=== PATIENT | male | born 1985 | race Caucasian/White ===

== ENCOUNTER 2017-04-28 22:22 | Emergency (ER) | payer MEDICAID ==
[~2017-04-28] VITALS: Ht 167.6 cm; Wt 93.0 kg
[2017-04-28 22:23] VITALS: BP 116/91
--- NOTE | 2017-04-28 22:23 | NUR ---
Dr. Lepe evaluating patient at bedside.
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
--- NOTE | 2017-04-28 22:23 | NUR ---
PT PLACED IN BED 7 BY EMS.
[2017-04-28] MEDS ORDERED: KETOROLAC 30 MG/ML VIAL IM ONE (22:25)
[2017-04-28] MEDS ORDERED: LIDOCAINE 1% ***ER ONLY *** 10 MG/ML VIAL INJ ONE (22:25)
[2017-04-28] MEDS ORDERED: NEOMYCIN/POLYMYXIN/BACITRACIN 0.9 GM/1 PKT TP ONE (22:25)
--- NOTE | 2017-04-29 00:12 | NUR ---
Patient discharged with v/s stable. Written and verbal after care instructions given and explained. Patient alert, oriented and verbalized understanding of instructions. Ambulatory with steady gait. All questions addressed prior to discharge. ID band removed. Patient advised to follow up with PMD. Rx of KEFLEX 500MG AND NAPROSYN 500MG given. Patient educated on indication of medication including possible reaction and side effects. Opportunity to ask questions provided and answered.
[2017-04-29 00:13] VITALS: BP 125/74
== END 2017-04-29 00:12 | disposition home or self-care (01) ==
LOC: MED 22:22
DX: S91.012A Laceration without foreign body, left ankle, initial encounter (principal); F17.200 Nicotine dependence, unspecified, uncomplicated; V87.8XXA Person injured in other specified noncollision transport accidents involving motor vehicle (traffic), initial encounter; Y93.55 Activity, bike riding; Y92.89 Other specified places as the place of occurrence of the external cause; Y99.8 Other external cause status
CPT/HCPCS: 12001; 73610; 90471; 90715; 96372; 99284; J1885; J2001

== ENCOUNTER 2017-05-22 17:33 | Emergency (ER) | payer MEDICAID ==
[~2017-05-22] VITALS: Ht 170.2 cm; Wt 94.6 kg
[2017-05-22 17:41] VITALS: BP 136/87
--- NOTE | 2017-05-22 17:52 | NUR ---
Patient to bed 07.
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
--- NOTE | 2017-05-22 17:55 | NUR ---
Patient taken to XRAY via wheelchair per tech.
--- NOTE | 2017-05-22 18:44 | NUR ---
DR. CRUZ EVALUATING PT AT BEDSIDE.
[2017-05-22] MEDS ORDERED: KETOROLAC 60 MG/2 ML VIAL IM ONE (18:50)
[2017-05-22 19:05] VITALS: BP 121/87
--- NOTE | 2017-05-22 19:05 | NUR ---
Patient discharged with v/s stable. Written and verbal after care instructions given and explained. Patient alert, oriented and verbalized understanding of instructions. Ambulatory with steady gait. All questions addressed prior to discharge. ID band removed. Patient advised to follow up with PMD. Rx of NORCO & MOTRIN given. Patient educated on indication of medication including possible reaction and side effects. Opportunity to ask questions provided and answered.
== END 2017-05-22 19:05 | disposition home or self-care (01) ==
LOC: MED 17:33
DX: S93.402A Sprain of unspecified ligament of left ankle, initial encounter (principal); F17.200 Nicotine dependence, unspecified, uncomplicated; X58.XXXA Exposure to other specified factors, initial encounter; Y93.89 Activity, other specified; Y92.89 Other specified places as the place of occurrence of the external cause; Y99.8 Other external cause status
CPT/HCPCS: 73610; 96372; 99284; J1885

== ENCOUNTER 2020-05-21 20:44 | Emergency (ER) | payer MEDICAID ==
[~2020-05-21] VITALS: Ht 167.6 cm; Wt 95.3 kg
[2020-05-21 20:50] VITALS: BP 113/68
--- NOTE | 2020-05-21 20:52 | NUR ---
SEEN AND EXAMINED BY PA WITH ORDERS, CARRIED OUT.
[2020-05-21 20:55] VITALS: BP 113/68
[2020-05-21] MEDS ORDERED: IBUPROFEN 600 MG TAB PO ONE (21:00)
--- NOTE | 2020-05-21 21:06 | NUR ---
Dr. Melo examining patient.
--- NOTE | 2020-05-21 21:13 | NUR ---
Patient discharged with v/s stable. Written and verbal after care instructions given and explained. Patient alert, oriented and verbalized understanding of instructions. Ambulatory with steady gait. All questions addressed prior to discharge. ID band removed. Patient advised to follow up with PMD. Rx of KEFLEX AND ibuprofen given. Patient educated on indication of medication including possible reaction and side effects. Opportunity to ask questions provided and answered.
== END 2020-05-21 21:13 | disposition home or self-care (01) ==
LOC: MED 20:44
DX: L03.012 Cellulitis of left finger (principal)
CPT/HCPCS: 90471; 90715; 99283

== ENCOUNTER 2021-09-23 20:48 | Emergency (ER) | payer MEDICAID ==
[~2021-09-23] VITALS: Ht 170.2 cm; Wt 90.7 kg
[2021-09-23 21:00] VITALS: BP 124/94
== END 2021-09-23 21:25 | disposition left against medical advice (07) ==
LOC: MED 20:48
DX: M79.641 Pain in right hand (principal); Z53.21 Procedure and treatment not carried out due to patient leaving prior to being seen by health care provider

== ENCOUNTER 2021-10-24 19:18 | Emergency (ER) | payer MEDICAID ==
[~2021-10-24] VITALS: Ht 167.6 cm; Wt 86.2 kg
[2021-10-24 19:56] VITALS: BP 100/62
[2021-10-24] MEDS ORDERED: LIDOCAINE 2% 1000 MG/50 ML VIAL INJ ONE (20:55)
[2021-10-24] MEDS ORDERED: LIDOCAINE MPF 2% 100 MG/5 ML VIAL INJ ONE (21:16)
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
--- NOTE | 2021-10-24 21:34 | NUR ---
DR. ARMAS AT BEDSIDE
--- NOTE | 2021-10-24 21:34 | NUR ---
DR ARMAS AT BEDSIDE EVALUATING PT INJURY
[2021-10-24] MEDS ORDERED: BACITRACIN OINT 500 UNITS/GM PKT TP ONE (21:40)
[2021-10-24 22:06] VITALS: BP 100/62
--- NOTE | 2021-10-24 22:06 | NUR ---
Patient discharged with v/s stable. Written and verbal after care instructions given and explained. Patient verbalized understanding. Ambulatory with steady gait. All questions addressed prior to discharge. Advised to follow up with PMD. VSS, A/OX4, UNLABORED BREATHING, AMBULATORY, AND CALM DEMEANOR.
== END 2021-10-24 22:06 | disposition home or self-care (01) ==
LOC: MED 19:18
DX: S61.211A Laceration without foreign body of left index finger without damage to nail, initial encounter (principal); W29.0XXA Contact with powered kitchen appliance, initial encounter; Y92.89 Other specified places as the place of occurrence of the external cause; Y93.89 Activity, other specified; Y99.8 Other external cause status
CPT/HCPCS: 90471; 90715; 99283; J2001

== ENCOUNTER 2024-03-14 14:54 | Inpatient (IN) | payer MEDICAID ==
[~2024-03-14] VITALS: Ht 170.2 cm; Wt 99.8 kg
[2024-03-14 15:35] VITALS: BP 126/81; PULSE 109; RESP 25; TEMP 97; O2SAT 100
[2024-03-14 16:14] LABS: BASOPHILS % (AUTO) 0.2 % (0.0-2.0); EOSINOPHILS % (AUTO) 0.1 % (0.0-4.0); HEMATOCRIT 50.4 % (36-52); LYMPHOCYTES # (AUTO) 1.4 K/uL (2.0-11.5); LYMPHOCYTES % (AUTO) 10.2 % (20.5-51.1); MEAN CORPUSCULAR HEMOGLOBIN 29 pg (27-31); MEAN CORPUSCULAR HGB CONC 34 g/dL (33-37); MEAN CORPUSCULAR VOLUME 84.8 fL (80-94); MONOCYTES # (AUTO) 0.7 K/uL (0.8-1.0); MONOCYTES % (AUTO) 4.9 % (1.7-9.3); NEUTROPHILS # (AUTO) 11.5 K/uL (1.8-7.7); NEUTROPHILS % (AUTO) 84.6 % (42.2-75.2); PLATELET COUNT (AUTO) 297 K/uL (140-450); RED BLOOD CELL COUNT(AUTO) 5.94 MIL/uL (4.20-6.10); RED CELL DISTRIBUTION WIDTH 13.5 % (11.6-13.7); WHITE BLOOD COUNT (AUTO) 13.5 K/uL (4.8-10.8)
[2024-03-14 16:35] LABS: ANION GAP 14.2 (8-16); CALCIUM 9.5 mg/dL (8.5-10.1); CARBON DIOXIDE 30.7 mmol/L (21-32); CREATININE 1.2 mg/dL (0.6-1.3); POTASSIUM 3.9 mmol/L (3.5-5.1); TOTAL BILIRUBIN 0.6 mg/dL (0.0-1.0); TOTAL PROTEIN, SERUM 8.4 g/dL (6.4-8.2)
[2024-03-14] MEDS: ONDANSETRON 4 MG/2 ML VIAL IVP ONE (16:42)
[2024-03-14] MEDS: PANTOPRAZOLE 40 MG INJ VIAL IVP ONE (16:42)
[2024-03-14] MEDS: NACL 0.9% 1,000 ML IV ONE (16:43)
[2024-03-14] MEDS ORDERED: DICYCLOMINE HCL LIQUID 10 MG/5 ML UDC ONE (17:44)
[2024-03-14] MEDS ORDERED: ALUMINUM HYD/MAG/SIMETHICONE 30 ML UDC ONE ×2 (17:44→17:45)
[2024-03-14] MEDS: DICYCLOMINE HCL LIQUID 20 MG, ALUMINUM HYD/MAG/SIMETHICONE 30 ML, LIDOCAINE VISCOUS 2% ... PO ONE (17:48)
[2024-03-14] MEDS: METOCLOPRAMIDE 10 MG/2 ML INJ VIAL IVP ONE (17:53)
[2024-03-14 20:00] VITALS: O2SAT 98
[2024-03-14] MEDS ORDERED: ONDANSETRON 4 MG/2 ML VIAL IVP PRN (20:05)
[2024-03-14] MEDS ORDERED: ZOLPIDEM 5 MG TAB PO PRN (20:05)
[2024-03-14] MEDS ORDERED: ACETAMINOPHEN 325 MG TAB PO PRN (20:05)
[2024-03-14 20:19] LABS: AMPHETAMINE, URINE POSITIVE ng/ml (NEG <=1000); BENZODIAZEPINE, URINE NEGATIVE ng/mL (NEG <=200); CANNABINOID, URINE NEGATIVE ng/mL (NEG <=50); COCAINE, URINE NEGATIVE ng/mL (NEG <=300); OPIATE, URINE NEGATIVE ng/mL (NEG <=2000); PHENCYCLIDINE SCREEN,URINE NEGATIVE ng/mL (NEG <=25)
[2024-03-14 20:20] LABS: BARBITURATE, URINE NEGATIVE ng/ml (NEG <=200)
[2024-03-14] MEDS: NACL 0.9% 1,000 ML IV SCH ×2 (21:17→21:59)
[2024-03-14 21:20] VITALS: BP 128/77; PULSE 109; RESP 18; TEMP 98.7; O2SAT 96
[2024-03-15 04:00] VITALS: BP 127/77; PULSE 100; RESP 18; TEMP 96.8; O2SAT 99
[2024-03-15 07:55] VITALS: PULSE 99; RESP 20; O2SAT 99
[2024-03-15 08:00] VITALS: BP 127/86; PULSE 100; RESP 18; TEMP 98.2; O2SAT 77
[2024-03-15 08:29] LABS: BASOPHILS % (AUTO) 0.2 % (0.0-2.0); EOSINOPHILS # (AUTO) 0.1 K/uL (0-0.4); EOSINOPHILS % (AUTO) 0.5 % (0.0-4.0); HEMATOCRIT 44.3 % (36-52); HEMOGLOBIN 14.8 g/dL (12.0-18.0); LYMPHOCYTES # (AUTO) 2.1 K/uL (2.0-11.5); LYMPHOCYTES % (AUTO) 15.6 % (20.5-51.1); MEAN CORPUSCULAR HEMOGLOBIN 29 pg (27-31); MEAN CORPUSCULAR HGB CONC 33 g/dL (33-37); MEAN CORPUSCULAR VOLUME 85.5 fL (80-94); MONOCYTES # (AUTO) 0.9 K/uL (0.8-1.0); MONOCYTES % (AUTO) 6.8 % (1.7-9.3); NEUTROPHILS # (AUTO) 10.2 K/uL (1.8-7.7); NEUTROPHILS % (AUTO) 76.9 % (42.2-75.2); PLATELET COUNT (AUTO) 241 K/uL (140-450); RED BLOOD CELL COUNT(AUTO) 5.18 MIL/uL (4.20-6.10); RED CELL DISTRIBUTION WIDTH 13.2 % (11.6-13.7); WHITE BLOOD COUNT (AUTO) 13.3 K/uL (4.8-10.8)
[2024-03-15] MEDS: DOCUSATE SODIUM 100 MG GELCAP PO SCH (08:35)
[2024-03-15 08:40] LABS: ALBUMIN 3.2 g/dL (3.4-5.0); ANION GAP 12.1 (8-16); CALCIUM 8.3 mg/dL (8.5-10.1); CARBON DIOXIDE 25.9 mmol/L (21-32); MAGNESIUM 2.1 mg/dL (1.8-2.4); PHOSPHORUS 2.8 mg/dL (2.5-4.9); TOTAL BILIRUBIN 0.5 mg/dL (0.0-1.0); TOTAL PROTEIN, SERUM 6.6 g/dL (6.4-8.2)
[2024-03-15 16:00] VITALS: BP 130/86; PULSE 99; RESP 18; TEMP 98.7; O2SAT 84
[2024-03-15] MEDS ORDERED: OMEP40EC23 PO (17:26)
[2024-03-15 18:23] VITALS: BP 125/75; PULSE 68; RESP 20; TEMP 97.1
[2024-03-15 18:32] VITALS: BP 125/78; PULSE 68; RESP 20; TEMP 97.1
== END 2024-03-15 20:15 | disposition home or self-care (01) | DRG 241 ==
LOC: MED 14:54 → MMU 20:03 → MTU 20:14
PROVIDERS: ADMIT Student in an Organized Health Care Education/Training Program; ATTEND Student in an Organized Health Care Education/Training Program
DX: K29.00 Acute gastritis without bleeding (principal); R65.10 Systemic inflammatory response syndrome (SIRS) of non-infectious origin without acute organ dysfunction; K21.9 Gastro-esophageal reflux disease without esophagitis; Z20.822 Contact with and (suspected) exposure to COVID-19; F10.10 Alcohol abuse, uncomplicated; F15.10 Other stimulant abuse, uncomplicated; Y90.9 Presence of alcohol in blood, level not specified
CPT/HCPCS: 36415; 80053; 80305; 82948; 83690; 83735; 84100; 85025; 87081; 96374; 96375; 99285; J2405; J2470; J2765